=== PATIENT | female | born 1960 | race Caucasian/White ===

== ENCOUNTER 2016-10-09 12:31 | Emergency (ER) | payer MEDICAID, OTHER ==
[~2016-10-09] VITALS: Ht 160 cm; Wt 83.0 kg
[~2016-10-09 12:31] MED LIST: ASPI1TAB69 PO; ATEN50TA PO; CLON1TAB PO; GABA600T PO; METF500T PO; PERC7.5T13 PO; ROSU20 PO
[2016-10-09 12:33] VITALS: BP 114/78; PULSE 86; RESP 24; TEMP 98.8; O2SAT 90
[2016-10-09] MEDS ORDERED: ACETAMINOPHEN/HYDROcodone 325 MG/5 MG TAB PO ONE (13:45)
--- NOTE | 2016-10-09 13:46 | PD ---
HPI Chief Complaint: Fall Time Seen by Provider: 13:46 Travel History International Travel<30 days: No Contact w/Intl Traveler<30days: No Traveled to known affect area: No History of Present Illness HPI 56-year-old female with a history of hypertension, hyperlipidemia, diabetes, COPD presents to the emergency department for evaluation of right wrist, right foot, left leg and upper back pain status post trip and fall. Patient states that yesterday she was walking back from taking the trash out and accidentally tripped over a curb in the parking lot outside her home causing her to fall forward onto her hands and then states she twisted and fell onto her back. Denies head trauma or loss of consciousness. Complains of pain in her right wrist, right foot, left medial calf and right upper back. States he did the implications that she landed on. Pain is aggravated with movement and palpation. Denies any numbness or tingling, weakness. No other complaints. PFSH Past Medical History Arthritis: No Asthma: No Anxiety: Yes Depression: Yes Heart Rhythm Problems: No Cancer: No Cardiovascular Problems: Yes (HTN) High Cholesterol: Yes Chest Pain: Yes Congestive Heart Failure: No COPD: Yes Diabetes: Yes (BORDERLINE) Diminished Hearing: No GERD: Yes Genitourinary: No Hypertension: Yes Immune Disorder: No Musculoskeletal: Yes (R KNEE SX) Psychiatric: Yes (DEPRESSION) Reproductive: No Respiratory: No Migraines: Yes Myocardial Infarction: No Sleep Apnea: No Thyroid Disease: Yes (HYPO) : 1 Para: 1 Past Surgical History Abdominal Surgery: Yes (, HYSTERECTOMY) Cardiac Surgery: No Section: Yes Ear Surgery: No Endocrine Surgery: No Eye Surgery: No Genitourinary Surgery: No Gynecologic Surgery: Yes Hysterectomy: Yes Oral Surgery: No Thoracic Surgery: No Other Surgery: Yes Social History Alcohol Use: Yes (2 BEERS TODAY) Tobacco Use: Yes (1 PPD) Substance Use: No Allergies-Medications (Allergen,Severity, Reaction): Coded Allergies: Penicillin (Verified Allergy, Severe, Hives, 10/09/16) Reported Meds & Prescriptions Reported Meds & Active Scripts Active Lortab (Hydrocodone-Acetaminophen) 5-325 Mg Tab 1 Tab PO Q6H PRN Reported Metformin (Metformin HCl) 500 Mg Tab 500 Mg PO DAILY With a meal Crestor (Rosuvastatin Calcium) 20 Mg Tab 20 Mg PO DAILY Percocet (Oxycodone-Acetaminophen) 7.5-325 mg Tab 1 Tab PO Q6H PRN Gabapentin 600 Mg Tab 600 Mg PO BID Clonazepam 1 Mg Tab 1 Mg PO TID Atenolol 50 Mg Tab 50 Mg PO DAILY Aspirin 81 Mg Tabdr 81 Mg PO DAILY Review of Systems Except as stated in HPI: all other systems reviewed are Neg Physical Exam Narrative GENERAL: Well-nourished and well-developed pleasant patient in no acute distress who is nontoxic appearing. SKIN: Warm and dry. HEAD: Normocephalic and atraumatic. EYES: No injection, drainage, or hyphema noted. PERRLA. EOMI. ENT: No nasal drainage noted. Oropharynx is clear. NECK: Supple and the trachea is midline. CARDIOVASCULAR: Regular rate and rhythm. RESPIRATORY: Breath sounds are equal bilaterally with no accessory muscle use, wheezing, rhonchi, or crackles. GASTROINTESTINAL: Abdomen is soft, non-tender, and nondistended. MUSCULOSKELETAL: Swelling of the right wrist with tenderness to palpation and decreased range of motion secondary to pain. Ecchymosis and swelling to the dorsal aspect of the right foot overlying the first and second MTP joints. Ecchymosis to the medial aspect of the left calf. No obvious deformities are present throughout the upper and lower extremities. Distal pulses are 2+ throughout. BACK: Tenderness to the upper thoracic region. No obvious deformities, bony point tenderness, or crepitus noted throughout the thoracic and lumbar vertebrae. NEUROLOGICAL: Awake, alert, and oriented. Normal speech and gait. Cranial nerves are grossly intact. Data Data Last Documented VS Vital Signs Date Time Temp Pulse Resp B/P Pulse Ox O2 Delivery O2 Flow Rate FiO2 10/09/16 13:57 70 20 92 Room Air 10/09/16 12:33 98.8 114/78 Orders Foot, Complete ([id number]) (10/09/16 13:44) Wrist, Complete ([id number]) (10/09/16 13:44) Ice/Cold Pack (10/09/16 13:44) Tibia/Fibula (Ap/Lat) (10/09/16 13:44) Acetamin-Hydrocod 325-5 Mg (Camp 5-325 (10/09/16 13:45) Spine, Thoracic-Ap/Lat/Sw(3vw) (10/09/16 13:44) Splint Or Brace Apply/Monitor (10/09/16 14:46) Splint Or Brace Apply/Monitor (10/09/16 14:54) MDM Medical Decision Making Medical Screen Exam Complete: Yes Emergency Medical Condition: Yes Differential Diagnosis Fracture versus contusion versus sprain Narrative Course 56-year-old female presents to the emergency department for evaluation of multiple injuries secondary to a mechanical fall yesterday. No other trauma or loss of consciousness. Patient is afebrile, vital signs are stable. All extremities are neurovascularly intact. X-ray imaging has been ordered and is pending. X-ray of the right foot shows a displaced chip fracture off the base of the first proximal phalanx. X-ray of the thoracic spine is negative for any acute abnormalities. X-ray of the left tib-fib is negative for any acute abnormalities. X-ray of the right wrist is negative for any acute abnormalities. Patient is placed in a hard soled shoe and a right Velcro wrist splint. Advised to follow-up with a gas analyst regarding her toe fracture. Discussed supportive care. Stable for discharge. Diagnosis Primary Impression: Toe fracture, right Qualified Code: S92.414A - Closed nondisplaced fracture of proximal phalanx of right great toe, initial encounter Additional Impressions: Contusion of left leg Qualified Code: S80.12XA - Contusion of left leg, initial encounter Right wrist sprain Qualified Code: S63.501A - Right wrist sprain, initial encounter Referrals: Face Painter Patient Instructions: General Instructions, Toe Fracture (ED) Additional Instructions: Hard sole shoe. Velcro wrist splint. Apply ice for 20 minutes on, 20 minutes off. Take medication as prescribed. Do not take Lortab with alcohol or while driving. Follow-up with a gas analyst. Return to the ED for any acute worsening of symptoms. Med/Other Pt SpecificInfo: Prescription(s) given Scripts Hydrocodone-Acetaminophen (Lortab)5-325 Mg Tab1 Tab PO Q6H PRN (PAIN) #20 TAB Ref 0 Prov:Sascha Jasso MD 10/09/16 Disposition: 01 DISCHARGE HOME Condition: Stable Steff Nunes Oct 09, 2016 13:46
[2016-10-09 13:57] VITALS: PULSE 70; RESP 20; O2SAT 92
--- NOTE | 2016-10-09 14:33 | RADRPT ---
EXAM DATE/TIME: 10/09/2016 14:12 [facility] COMPARISON: No previous studies available for comparison. INDICATIONS : Right foot pain post fall yesterday. MEDICAL HISTORY : None. SURGICAL HISTORY : None. ENCOUNTER: Initial ACUITY: 2 days PAIN SCORE: 8/10 LOCATION: Right foot. FINDINGS: There is a displaced chip fracture off the base of the first proximal phalanx. The fracture line exte nds into the articular surface at the first metatarsophalangeal joint. No joint dislocation is seen. There is diffuse soft tissue swelling. The rest of the bony structures are grossly intact. CONCLUSION: 1. Displaced chip fracture off the base of the first proximal phalanx. Parth Pendleton MD on October 09, 2016 at 14:31 Board Certified Radiologist. This report was verified electronically.
--- NOTE | 2016-10-09 14:34 | RADRPT ---
EXAM DATE/TIME: 10/09/2016 14:15 [facility] COMPARISON: No previous studies available for comparison. INDICATIONS : Left lower leg pain post fall yesterday. MEDICAL HISTORY : None. SURGICAL HISTORY : None. ENCOUNTER: Initial ACUITY: 2 days PAIN SCORE: 4/10 LOCATION: Left tibia, fibula. FINDINGS: Two view examination of the left tibia demonstrates no evidence of fracture or dislocation. Bony min eralization is normal. The soft tissue structures are intact. CONCLUSION: Normal examination for a patient of this age. Parth Pendleton MD on October 09, 2016 at 14:32 Board Certified Radiologist. This report was verified electronically.
--- NOTE | 2016-10-09 14:35 | RADRPT ---
EXAM DATE/TIME: 10/09/2016 14:20 [facility] COMPARISON: No previous studies available for comparison. INDICATIONS : Upper back pain post fall yesterday. MEDICAL HISTORY : None. SURGICAL HISTORY : None. ENCOUNTER: Initial ACUITY: 2 days PAIN SCORE: 8/10 LOCATION: thoracic spine. FINDINGS: There is normal alignment of the thoracic vertebral bodies. Vertebral body height is maintained. No evidence of fracture or subluxation. Pedicles are intact at all levels. There is a mild primary de generative changes involving the mid to lower thoracic spine. The paravertebral reflections are not t hickened. CONCLUSION: Mild primary degenerative changes involving the mid to lower thoracic spine. No acute bony fracture. Parth Pendleton MD on October 09, 2016 at 14:33 Board Certified Radiologist. This report was verified electronically.
--- NOTE | 2016-10-09 14:41 | RADRPT ---
EXAM DATE/TIME: 10/09/2016 14:17 [facility] COMPARISON: No previous studies available for comparison. INDICATIONS : Right wrist pain post fall yesterday. MEDICAL HISTORY : None. SURGICAL HISTORY : None. ENCOUNTER: Initial ACUITY: 2 days PAIN SCORE: 10/10 LOCATION: Right wrist. FINDINGS: Three view examination of the right wrist demonstrates no soft tissue swelling, dislocation, or fract ure. The carpal bones are in normal alignment. The joint spaces are maintained. Bony mineralizatio n is normal. CONCLUSION: No acute fracture or joint dislocation. Parth Pendleton MD on October 09, 2016 at 14:39 Board Certified Radiologist. This report was verified electronically.
[2016-10-09] MEDS ORDERED: HYDR-3533 PO (14:52)
== END 2016-10-09 15:43 | disposition home or self-care (01) ==
LOC: NEPB 12:31
DX: S92.414A Nondisplaced fracture of proximal phalanx of right great toe, initial encounter for closed fracture (principal); S80.12XA Contusion of left lower leg, initial encounter; S63.501A Unspecified sprain of right wrist, initial encounter; W10.1XXA Fall (on)(from) sidewalk curb, initial encounter; Y92.481 Parking lot as the place of occurrence of the external cause
CPT/HCPCS: 72072; 73110; 73590; 73630; 99284; L3260; L3908